=== PATIENT | female | born 1985 | race Caucasian/White ===

== ENCOUNTER 2016-10-22 16:09 | Emergency (ER) | payer MEDICAID ==
[~2016-10-22] VITALS: Ht 162.6 cm; Wt 59.1 kg
[2016-10-22 18:59] VITALS: BP 128/65
== END 2016-10-22 19:00 | disposition home or self-care (01) ==
LOC: EMS 16:25
DX: M25.512 Pain in left shoulder (principal); F17.210 Nicotine dependence, cigarettes, uncomplicated
CPT/HCPCS: 99283; 99407